=== PATIENT | female | born 1965 | race Two or more races ===

== ENCOUNTER 2017-07-12 20:30 | Inpatient (IN) | payer SELFPAY ==
[~2017-07-12] VITALS: Ht 167.6 cm; Wt 77.2 kg
[2017-07-13] MEDS ORDERED: ASPIRIN 325MG EC TABLET PO ONE (01:00)
[2017-07-13 01:40] LABS: HEMATOCRIT. 26.2 % (36.0-48.0); HEMOGLOBIN. 7.3 g/dL (12.0-16.0); MEAN CORPUSCULAR HEMOGLOBIN 15.8 pg (28.0-32.0); MEAN CORPUSCULAR VOLUME 56.6 fL (81.0-99.0); MEAN PLATELET VOLUME 8.4 fl (7.4-10.4); PLATELET 464 x1000/uL (130-400); RED BLOOD CELL COUNT 4.63 mill/uL (4.2-5.4); RED CELL DISTRIBUTION WIDTH 21.1 % (11.6-14.6)
[2017-07-13 01:48] LABS: PROTHROMBIN TIME 10.4 sec (9.4-11.6)
[2017-07-13 01:52] LABS: CHLORIDE 106 mEq/L (98-107)
[2017-07-13 01:59] LABS: TROPONIN I < 0.02 ng/mL (0.00-0.04)
[2017-07-13 03:06] LABS: PLATELET ESTIMATE SLIGHTLY INCREASED
[2017-07-13] MEDS ORDERED: ACETAMINOPHEN 325MG TABLET PO PRN (07:45)
[2017-07-13] MEDS ORDERED: MORPHINE SULFATE 4 MG/ML CPJ (NOT FOR IM USE) IV PRN (07:45)
[2017-07-13] MEDS ORDERED: DOCUSATE SODIUM 100MG CAPSULE PO PRN (07:45)
[2017-07-13] MEDS ORDERED: CLONIDINE 0.1MG TABLET PO PRN (07:45)
[2017-07-13 09:20] LABS: CREATINE KINASE 29 IU/L (26-192); TROPONIN I < 0.02 ng/mL (0.00-0.04)
[2017-07-13 09:25] LABS: CREATINE KINASE MB FRACTION < 0.5 ng/mL (0.5-3.6)
[2017-07-13 16:07] LABS: CREATINE KINASE 34 IU/L (26-192); CREATINE KINASE MB FRACTION < 0.5 ng/mL (0.5-3.6); TROPONIN I < 0.02 ng/mL (0.00-0.04)
[2017-07-13 16:15] VITALS: BP 115/60
[2017-07-13 16:47] VITALS: BP 115/60
[2017-07-13] MEDS ORDERED: ONDANSETRON HCL 4MG/2ML VIAL IV PRN (17:13)
[2017-07-13] MEDS ORDERED: INFLUENZA VIRUS VACCINE 0.5ML SYR IM ONE (18:52)
[2017-07-13] MEDS ORDERED: PNEUMOCOCCAL 23-VAL P-SAC VAC 0.5 ML IM ONE (18:52)
[2017-07-13 20:00] VITALS: BP 126/62
[2017-07-14] VITALS: BP 128/54
[2017-07-14 03:50] LABS: *AMPHETAMINES SCREEN URINE PRESUMTIVE POSITIVE (NEGATIVE); *BARBITURATES SCREEN URINE NEGATIVE (NEGATIVE); *BENZODIAZEPINES SCREEN URINE NEGATIVE (NEGATIVE); *COCAINE SCREEN URINE NEGATIVE (NEGATIVE)
[2017-07-14 03:51] LABS: CANNABINOID URINE SCREEN NEGATIVE (NEGATIVE); METHADONE URINE SCREEN NEGATIVE (NEGATIVE); OPIATES URINE SCREEN NEGATIVE (NEGATIVE); PHENCYCLIDINE URINE SCREEN NEGATIVE (NEGATIVE)
[2017-07-14 04:00] VITALS: BP 126/47
[2017-07-14 07:22] LABS: HEMATOCRIT. 25.5 % (36.0-48.0); HEMOGLOBIN. 7.3 g/dL (12.0-16.0); MEAN CORPUSCULAR HEMOGLOBIN 15.9 pg (28.0-32.0); MEAN CORPUSCULAR VOLUME 55.4 fL (81.0-99.0); MEAN PLATELET VOLUME 8.8 fl (7.4-10.4); PLATELET 505 x1000/uL (130-400); RED BLOOD CELL COUNT 4.59 mill/uL (4.2-5.4); RED CELL DISTRIBUTION WIDTH 20.4 % (11.6-14.6)
[2017-07-14 08:18] LABS: CHLORIDE 105 mEq/L (98-107)
[2017-07-14 08:22] LABS: HDL CHOLESTEROL 76 mg/dL (40-59); LDL CHOLESTEROL 94 mg/dL (5-100)
[2017-07-14 10:12] LABS: PLATELET ESTIMATE INCREASED
== END 2017-07-14 17:25 | disposition left against medical advice (07) | DRG 198 ==
LOC: ER 20:30 → 5WST 07-13 02:44 → SUPCPDRO 07-13 07:35 → ENRESERV 07-13 15:21
PROVIDERS: ADMIT Hospitalist; ATTEND Hospitalist
DX: R07.89 Other chest pain (principal); I25.2 Old myocardial infarction; I10 Essential (primary) hypertension; I25.10 Atherosclerotic heart disease of native coronary artery without angina pectoris; E78.5 Hyperlipidemia, unspecified; D64.9 Anemia, unspecified; Z53.21 Procedure and treatment not carried out due to patient leaving prior to being seen by health care provider; N92.0 Excessive and frequent menstruation with regular cycle; E78.00 Pure hypercholesterolemia, unspecified; Z95.1 Presence of aortocoronary bypass graft; Z98.61 Coronary angioplasty status; Z91.041 Radiographic dye allergy status; Z72.89 Other problems related to lifestyle
CPT/HCPCS: 36415; 71045; 80053; 80061; 80305; 82550; 82553; 83036; 83880; 84439; 84443; 84484; 85025; 85379; 85610; 86850; 86900; 86920; 90686; 90732; 93005; 93306; 93970; 99285; J7030